=== PATIENT | female | born 1945 | race Two or more races ===

== ENCOUNTER 2021-07-06 16:46 | Emergency (ER) | payer OTHER ==
[~2021-07-06] VITALS: Ht 157.5 cm; Wt 63.5 kg
[2021-07-06] MEDS ORDERED: PREVACID15 M1 (17:02)
[2021-07-06] MEDS ORDERED: CHILDREN'S ASPI81 MG (17:03)
[2021-07-06] MEDS ORDERED: TOPROL XL25 M1 (17:03)
== END 2021-07-06 21:49 | disposition home or self-care (01) ==
LOC: ER 16:46
DX: N39.0 Urinary tract infection, site not specified (principal)